=== PATIENT | female | born 1955 | race Caucasian/White ===

== ENCOUNTER → 2016-09-04 | Outpatient (CLI) | payer MEDICARE, MEDICAID ==
--- NOTE | 2016-09-04 11:30 | WOMENS IMAGING REPORT ---
EXAM DESCRIPTION: BILAT SCREENING MAMMO W/CAD COMPLETED DATE/TIME: 09/04/2016 10:20 am REASON FOR STUDY: Z12.31, ROUTINE SCREENING MAMMO Z12.31 ENCNTR SCREEN MAMMOGRAM FOR MALIGNANT NEOP LASM OF ENRIKE COMPARISON: None. TECHNIQUE: Standard craniocaudal and mediolateral oblique views of each breast recorded using 777 Davisa l acquisition. LIMITATIONS: None. FINDINGS: RIGHT BREAST MASSES: No suspicious masses. CALCIFICATIONS: No new or suspicious calcifications. ARCHITECTURAL DISTORTION: None. DEVELOPING DENSITY: None. ASYMMETRY: None noted. OTHER: No other significant findings. LEFT BREAST MASSES: No suspicious masses. CALCIFICATIONS: No new or suspicious calcifications. ARCHITECTURAL DISTORTION: None. DEVELOPING DENSITY: None. ASYMMETRY: Asymmetrically dense fibroglandular tissue in the lateral half of the left breast on CC an d MLO imaging. Cone compression and ultrasound of this area is recommended. OTHER: No other significant findings. Read with the assistance of CAD. .[facility] - R2 Cenova Version 1.3 .[facility] - R2 Cenova Version 1.3 .[facility] - R2 Cenova Version 2.4 .[facility] - R2 Cenova Version 2.4 .[facility] - R2 Access Registrar Version 9.2 BREAST DENSITY: b. There are scattered areas of fibroglandular density. BIRAD: 0 Incomplete: Additional Imaging Evaluation and/or prior Mammograms for Comparison. RECOMMENDATION: RECOMMENDED FOLLOW-UP: Additional left breast diagnostic mammograms and ultrasound The patient will be contacted for additional imaging. COMMENT: The [employer] (A[employer]) has developed recommendations for screening MRI of the breasts in certain patient populations, to be used in conjunction with mammography. Breast MRI s urveillance may be appropriate for women with more than 20% lifetime risk of developing breast cancer as determined by genetic testing, significant family history of the disease, or history of mantle r adiation for Hodgkins Disease. ACR Practice Guidelines 2008. TECHNICAL DOCUMENTATION: FINDING NUMBER: (1) ASSESSMENT: (1) JOB ID: [id number] [employer]- All Rights Reserved
== END ==
LOC: WI 09:52
DX: Z12.31 Encounter for screening mammogram for malignant neoplasm of breast (principal); R92.2 Inconclusive mammogram
CPT/HCPCS: 77067; G0202

== ENCOUNTER 2016-09-11 14:02 | Emergency (ER) | payer MEDICARE, MEDICAID ==
[2016-09-11] MEDS ORDERED: ALTEPLASE INJ 100 MG VIAL ONE (14:15)
[2016-09-11] MEDS ORDERED: NOREPINEPHRINE BITARTRATE INJ/PF 4 MG/4 ML SDV IV ONE (14:24)
[2016-09-11 14:59] LABS: HEMATOCRIT 38.2 % (36.0-47.0); HEMOGLOBIN 11.7 g/dL (12.0-15.5); HGB HCT DIFFERENCE -3.1; MEAN CORPUSCULAR HEMOGLOBIN 28.9 pg (27.0-33.4); MEAN CORPUSCULAR HGB CONC 30.5 g/dL (32.0-36.0); MEAN CORPUSCULAR VOLUME 95 fl (80-97); RED BLOOD COUNT 4.04 10^6/uL (3.72-5.28); RED CELL DISTRIBUTION WIDTH 14.9 % (11.5-14.0); WHITE BLOOD COUNT 8.1 10^3/uL (4.0-10.5)
[2016-09-11 15:05] LABS: ALANINE AMINOTRANSFERASE 157 U/L (9-52); ALBUMIN 2.6 g/dL (3.5-5.0); ALKALINE PHOSPHATASE 73 U/L (38-126); ASPARTATE AMINO TRANSFERASE 127 U/L (14-36); BILIRUBIN,TOTAL 0.5 mg/dL (0.2-1.3); BLOOD UREA NITROGEN 14 mg/dL (7-20); CALCIUM 8.7 mg/dL (8.4-10.2); CARBON DIOXIDE 12 mmol/L (22-30); CHLORIDE 105 mmol/L (98-107); CREATINE KINASE 148 U/L (30-135); CREATININE RESULT 1.17 mg/dL (0.52-1.25); POTASSIUM 4.3 mmol/L (3.6-5.0); SODIUM 142.6 mmol/L (137-145); TOTAL PROTEIN 5.3 g/dL (6.3-8.2)
[2016-09-11 15:17] LABS: CREATINE KINASE MB 3.02 ng/mL (<4.55)
[2016-09-11 15:18] VITALS: BP 117/85
[2016-09-11 15:18] LABS: GLUCOSE 462 mg/dL (75-110)
[2016-09-11 15:22] LABS: BAND NEUTROPHILS % (MANUAL) 1 % (3-5); BASOPHILS % (MANUAL) 0 % (0-2); EOSINOPHILS % (MANUAL) 0 % (0-6); LYMPHOCYTES % (MANUAL) 40 % (13-45); TOTAL CELLS COUNTED 100
--- NOTE | 2016-09-11 15:22 | ER Document Report ---
ED Resuscitation - General Stated Complaint: POST ARREST Time seen by provider: 14:00 Mode of Arrival: Medic Information source: Relative, Emergency Med Personnel Cannot obtain history due to: Intubated Notes: This is a 60-year-old female who has a history of COPD (only medicines Ventolin ) who is at home today with her fianc. The fianc reports that she began short of breath and had a cardiac arrest shortly thereafter. The fianc is a old academic associate and started CPR at the home. EMS arrived approximately 10 minutes later and found the patient in PEA: EMS started CPR, intubated the patient in the field and gave her epi 3, atropine 0.5, bicarbonate 1 and started dopamine drip after establishing ROSC. On arrival to the emergency room, the patient did have pulses initially, went into PEA shortly after presentation. CPR was started for a few minutes in the emergency room. We were able to get return of ROSC. The patient was switched over to norepinephrine. A right femoral IV line was placed. EKG at that time shows evidence of an anterior wall HI. In the emergency room: CPR 2-3 minutes EKG shows significant ST elevations anteriorly [facility] contacted Patient on a ventilator: SIMV 14, 100%, PEEP of 5 IV access: Right IJ, right peripheral (wrist), Right femoral vein placed [employer] initiated after discussion with Dr. Mosher TRAVEL OUTSIDE OF THE [place] IN LAST 30 DAYS: No - HPI Witnessed arrest: Yes Bystander CPR?: Yes Onset: Just prior to arrival Symptoms prior to event: Short of breath Activity prior to event: At rest Associated Symptoms: None - Paramedics initial findings Unresponsive: Completely Respirations: Agonal Rhythm: PEA - Related Data Allergies/Adverse Reactions: aspirin [Aspirin] Allergy (Severe, Verified 09/11/16 15:17) Nausea Penicillins Allergy (Severe, Verified 09/11/16 15:17) Hives Sulfa (Sulfonamide Antibiotics) Allergy (Severe, Verified 09/11/16 15:17) Hives Iodinated Contrast Media - Oral and [IV Dye, Iodine Containing] Allergy (Mild, Verified 09/11/16 15:17) Hives codeine [Codeine] Allergy (Unknown, Verified 09/11/16 15:17) Hives acetaminophen [From Vicodin] Allergy (Verified 09/11/16 15:17) hydrocodone bitartrate [From Vicodin] Allergy (Verified 09/11/16 15:17) oxycodone HCl [From OxyContin] Allergy (Verified 09/11/16 15:17) prednisone [Prednisone] Allergy (Verified 09/11/16 15:17) morphine [Morphine] Adverse Reaction (Intermediate, Verified 09/11/16 15:17) "MITCHELL SKIN" Past Medical History - General Information source: Relative, Emergency Med Personnel - Social History Smoking Status: Current Every Day Smoker Cigarette use (# per day): Yes - affect per day Frequency of alcohol use: None Drug Abuse: None Lives with: Spouse/Significant other Family History: None, Reviewed & Not Pertinent - Past Medical History Cardiac Medical History: Reports: Hx Hypercholesterolemia Denies: Hx Coronary Artery Disease - HIGH CHOLESTEROL, Hx Heart Attack, Hx Hypertension Pulmonary Medical History: Reports: Hx Asthma, Hx COPD Denies: Hx Bronchitis, Hx Pneumonia Neurological Medical History: Denies: Hx Cerebrovascular Accident, Hx Seizures Musculoskeltal Medical History: Denies Hx Arthritis, Reports Hx Musculoskeletal Deformity, Reports Hx Musculoskeletal Trauma Psychiatric Medical History: Reports: Hx Depression Past Surgical History: Reports: Hx Cholecystectomy - Immunizations Immunizations up to date: No Hx Diphtheria, Pertussis, Tetanus Vaccination: No - STATES UNSURE Hx Pneumococcal Vaccination: 12/13/09 Review of Systems - Review of Systems -: Yes ROS unobtainable due to patient's medical condition Physical Exam - Vital signs Vitals: Pulse Ox 97 09/11/16 14:02 Notes: Physical exam: GENERAL: 40-year-old female, on back, unresponsive HEAD: Atraumatic, normocephalic. EYES: Pupils dilated and unreactive (atropine given) ENT: ET tube in place Moist mucous membranes. NECK: No masses LUNGS: Lateral breath sounds with bagging HEART: Regular rate and rhythm without murmurs, rubs or gallops. ABDOMEN: Soft, nontender, normoactive bowel sounds. No guarding, no rebound. No masses appreciated. EXTREMITIES: Left IO, lower extremity. Normal range of motion, no pitting or edema. No clubbing or cyanosis. NEUROLOGICAL: Unresponsive PSYCH: Normal mood, normal affect. SKIN: Warm, Dry, normal turgor, no rashes or lesions noted. Course - Re-evaluation Re-evalutation: I discussed case with Dr. Mosher of cardiology at [facility]. He did recommend thrombolytics. Technically, the actual time of chest compressions is not quite known. However, based upon the likelihood of if the thrombolytics were not given, I agreed with thrombolytics and they were administered as a salvage/ last-ditch attempt to save the patient I have discussed the case with the patient's fianc when he is aware of the dire situation. Patient to be transported by air. Prior to transfer, patient has had spontaneous movement of all extremities. Repeat EKG after the thrombolytics shows improvement. She is currently on a ventilator, maintaining a blood pressure with IV neuro epinephrine. - Vital Signs Vital signs: Temp Pulse Resp BP Pulse Ox 96.3 F L 20 117/85 100 09/11/16 15:14 09/11/16 15:14 09/11/16 15:14 09/11/16 15:14 - Laboratory Result Diagrams: 09/11/16 14:15 09/11/16 14:15 Laboratory results interpreted by me: 09/11/16 09/11/16 14:15 14:15 Hgb 11.7 L MCHC 30.5 L RDW 14.9 H Plt Count 132 L Seg Neuts % (Manual) 36 L Band Neutrophils % 1 L Monocytes % (Manual) 2 L Metamyelocytes % 3 H Myelocytes % 2 H Carbon Dioxide 12 L Anion Gap 26 H Est GFR ( Amer) 57 L Est GFR (Non-Af Amer) 47 L Glucose 462 H* AST 127 H ALT 157 H Creatine Kinase 148 H Total Protein 5.3 L Albumin 2.6 L - Diagnostic Test Radiology reviewed: Image reviewed, Reports reviewed - Bilateral infiltrates - EKG Interpretation by Me Rate: Normal - EKG shows ST elevations V1 through V4 Procedures - Central Line Right Femoral Time completed: 15:25 Consent obtained: No Central line pre-insertion: Chloraprep applied Central line lumen type: Triple Ultrasound guided: Yes Line secured with sutures: Yes Central line post-insertion: Blood return from lumens, Biopatch applied Number of attempts: 1 Complications: No Notes: 09/11/16 18:52 MSBT followed including cap, mask, sterile gloves, large sterile sheet, hand hygiene, sterile ultrasound probe sleeve, sterile saline for probe visualization , liberal ChloraPrep for cutaneous antisepsis both during procedure set up and immediately before Biopatch application, line stabilization with suture and sterile Tegaderm placement. - Additional Procedures CPR Time performed: 14:30 Additional Procedures: Other - CPR performed Critical Care Note - Critical Care Note Total time excluding time spent on procedures (mins): 80 Comments: The 80 minutes does not include time for central line procedure. Discharge - Discharge Clinical Impression: cardiopulmonary arrest, STEMI Condition: Critical Disposition: [facility]
[2016-09-11 15:26] LABS: ANISOCYTOSIS SLIGHT; OVALOCYTES SLIGHT; POIKILOCYTOSIS SLIGHT
[2016-09-11 15:31] LABS: TROPONIN I 0.548 ng/mL
[2016-09-11 15:52] LABS: ANION GAP 26 (5-19)
[2016-09-11] MEDS ORDERED: TENECTEPLASE INJ 50 MG KIT IV ONE (19:30)
--- NOTE | 2016-09-12 11:19 | EKG REPORT ---
SEVERITY:- ABNORMAL ECG - SINUS TACHYCARDIA RIGHT BUNDLE BRANCH BLOCK : Confirmed by: Meli Siu 12-Sep-2016 11:19:05
--- NOTE | 2016-09-12 11:19 | EKG REPORT ---
SEVERITY:- ABNORMAL ECG - SINUS TACHYCARDIA ABERRANT COMPLEX, POSSIBLY SUPRAVENTRICULAR RBBB AND LPFB : Confirmed by: Meli Siu 12-Sep-2016 11:19:00
--- NOTE | 2016-09-12 11:21 | EKG REPORT ---
SEVERITY:- ABNORMAL ECG - SINUS RHYTHM RBBB AND LPFB ST DEPRESSION, CONSIDER ISCHEMIA, INF LEADS ST ELEVATION V1-V3 CONSISTENT WITH ACUTE CO, REC REPEAT EKG : Confirmed by: Meli Siu 12-Sep-2016 11:21:13
== END 2016-09-11 16:22 | disposition short-term general hospital (02) ==
LOC: ER 14:02
PROC: 0JHL3XZ Insertion of Tunneled Vascular Access Device into Right Upper Leg Subcutaneous Tissue and Fascia, Percutaneous Approach (ICD-10-PCS; principal; 2016-09-11)
DX: I46.9 Cardiac arrest, cause unspecified (principal); I21.3 ST elevation (STEMI) myocardial infarction of unspecified site; J44.9 Chronic obstructive pulmonary disease, unspecified; R06.02 Shortness of breath; Z79.899 Other long term (current) drug therapy; F17.210 Nicotine dependence, cigarettes, uncomplicated
CPT/HCPCS: 36571; 93005; 99291; 99292; 92950; 96374; 36415; 82553; 82550; 85025; 80053; 84484; 71010; 93010; J3101; J3490